=== PATIENT | female | born 1985 | race African-American/Black ===

== ENCOUNTER 2017-09-02 10:03 | Emergency (ER) | payer OTHER ==
[~2017-09-02] VITALS: Ht 152.4 cm; Wt 51.0 kg
[~2017-09-02 10:03] MED LIST: DEPO150I IM; DIFL150T PO; FLUC150T PO; METR0.7528 VAGINAL; METR1TAB76 PO; TERC.4%V VAGINAL
[2017-09-02 10:05] VITALS: BP 115/73; PULSE 63; RESP 14; TEMP 98.2; O2SAT 100
[2017-09-02] MEDS ORDERED: BROMSYP PO (10:47)
[2017-09-02] MEDS ORDERED: BENZ100 PO (10:47)
--- NOTE | 2017-09-02 10:52 | PD ---
HPI Chief Complaint: Cold / Flu Symptoms Time Seen by Provider: 10:39 Travel History International Travel<30 days: No Contact w/Intl Traveler<30days: No Traveled to known affect area: No History of Present Illness HPI This is a 32 old female with no significant past medical history presents for evaluation of cough. Symptoms started 4 days ago. The cough is productive with green sputum. Symptoms are worsening I. She has not been using any medication for symptom relief. Denies any fevers, chills, sore throat, rash or recent travel. No sick contacts. She has no other complaints at this time. PFSH Past Medical History Cancer: No Cardiovascular Problems: No Diabetes: No Diminished Hearing: No Endocrine: No Genitourinary: No Hepatitis: No Hiatal Hernia: No Immune Disorder: No Musculoskeletal: Yes (BACK PAIN S/P TRAUMA) Neurologic: No Psychiatric: No Reproductive: Yes (CERVICAL DYSPLASIA) Respiratory: No Integumentary: Yes (EZCEMA) Immunizations Current: No Thyroid Disease: No : 1 Para: 1 Past Surgical History AICD: No Gynecologic Surgery: Yes (CONE BIOPSY) Joint Replacement: No Pacemaker: No Social History Alcohol Use: No Tobacco Use: No Substance Use: No Allergies-Medications (Allergen,Severity, Reaction): Coded Allergies: No Known Allergies (Unverified Adverse Reaction, Unknown, 09/02/17) Reported Meds & Prescriptions Reported Meds & Active Scripts Active Tessalon Perles (Benzonatate) 100 Mg Cap 200 Mg PO TID PRN Bromfed DM Liq (Jarueneaeengohj-Gufftvzrffqomhe-VL Liq) 30-2-10 Mg/5 Ml Syrp 5 Ml PO Q6H PRN Fluconazole 150 Mg Tab 150 Mg PO ONCE Metronidazole 500 Mg Tab 500 Mg PO BID 7 Days Terazol 7 Vaginal Cream (Terconazole Vaginal Cream) 0.4 % Cream 1 Appl VAGINAL HS 1 applicatorful intravaginally x 7 nights Metrogel Vaginal Gel (Metronidazole Vaginal Gel) 0.75 % Gel 1 Appl VAGINAL HS Depo-Provera Inj (Medroxyprogesterone Inj) 150 Mg/Ml Inj 150 Mg IM Q90D Diflucan (Fluconazole) 150 Mg Tab 150 Mg PO ONCE Review of Systems Except as stated in HPI: all other systems reviewed are Neg Physical Exam Narrative GENERAL: Well-developed well-nourished female in no acute distress SKIN: Warm and dry. HEAD: Atraumatic. Normocephalic. EYES: Pupils equal and round. No scleral icterus. No injection or drainage. ENT: No nasal bleeding or discharge. Mucous membranes pink and moist. No Oropharyngeal erythema or exudate. Tympanic membranes appear normal. NECK: Trachea midline. No JVD. No lymphadenopathy CARDIOVASCULAR: Regular rate and rhythm. No murmur appreciated. RESPIRATORY: No accessory muscle use. Clear to auscultation. Breath sounds equal bilaterally. No crackles no wheezing or rhonchi GASTROINTESTINAL: Abdomen soft, non-tender, nondistended. Hepatic and splenic margins not palpable. Data Data Last Documented VS Vital Signs Date Time Temp Pulse Resp B/P (MAP) Pulse Ox O2 Delivery O2 Flow Rate FiO2 09/02/17 10:05 98.2 63 14 115/73 (87) 100 Orders Orders Ed Discharge Order (09/02/17 10:48) [facility] Medical Decision Making Medical Screen Exam Complete: Yes Emergency Medical Condition: Yes Medical Record Reviewed: Yes Differential Diagnosis Bronchitis, pneumonia, reactive airway disease, bronchiectasis, sinusitis, influenza Narrative Course 32-year-old female with 4 days of productive cough and she appears well. Her lungs are clear to auscultation. She has not been febrile. I suspect she has a viral bronchitis. She will be discharged with cough suppressant medication. Diagnosis Primary Impression: Bronchitis Patient Instructions: Acute Bronchitis (ED), General Instructions Additional Instructions: Medication as prescribed. Stay well hydrated and well-nourished. Wash hands frequently, cover mouth and coughing. Return for any emergent medical conditions. Med/Other Pt SpecificInfo: Prescription(s) given Scripts Benzonatate (Tessalon Perles) 100 Mg Cap 200 MG PO TID Y for COUGH, #30 CAP 0 Refills Prov: Sendy Macdonald MD 09/02/17 Lgmnzmsyonouqca-Hfgdntkuxucldbu-QZ Liq (Bromfed DM Liq) 30-2-10 Mg/5 Ml Syrp 5 ML PO Q6H Y for COUGH AND/OR COLD SYMPTOMS, #1 BOTTLE 0 Refills Prov: Sendy Macdonald MD 09/02/17 Disposition: 01 DISCHARGE HOME Condition: Stable Jensen Sandoval Sep 02, 2017 10:52
== END 2017-09-02 10:59 | disposition home or self-care (01) ==
LOC: NEPD 10:03
DX: J40 Bronchitis, not specified as acute or chronic (principal)
CPT/HCPCS: 99283